=== PATIENT | female | born 1960 | race Caucasian/White ===

== ENCOUNTER 2017-11-08 10:44 | Inpatient (IN) | payer SELFPAY ==
[~2017-11-08] VITALS: Ht 152.4 cm; Wt 49.0 kg
[2017-11-08 11:08] LABS: GLUCOSE,POINT OF CARE 443 MG/DL (70-110)
[2017-11-08] MEDS ORDERED: SODIUM CHLORIDE 0.9% 1,000 ML IV ONE (11:30)
[2017-11-08] MEDS ORDERED: INSULIN REGULAR, HUMAN 100 UNITS/ML IVP ONE (11:30)
[2017-11-08] MEDS ORDERED: LORazepam 2 MG/ML VIAL IM ONE (11:45)
[2017-11-08] MEDS ORDERED: INSULIN REGULAR, HUMAN 100 UNITS/ML SQ ONE (11:45)
[2017-11-08] MEDS ORDERED: HALOPERIDOL LACTATE 5 MG/ML VIAL IM ONE (11:45)
[2017-11-08] MEDS ORDERED: QUEtiapine FUMARATE 100 MG TABLET PO ONE (12:45)
[2017-11-08 13:09] LABS: BASOPHILS % (AUTO) 0.3 % (0.0-2.0); EOSINOPHILS % (AUTO) 0.8 % (1.0-6.0); HEMATOCRIT 41.4 % (36-46); HEMOGLOBIN 13.9 g/dL (12.0-16.0); LYMPHOCYTES # (AUTO) 1.9 K/uL (1.0-4.8); LYMPHOCYTES % (AUTO) 17.3 % (22.0-44.0); MEAN CORPUSCULAR HEMOGLOBIN 28.6 pg (26.0-34.0); MEAN CORPUSCULAR HGB CONC 33.5 G/dL (31.0-37.0); MEAN CORPUSCULAR VOLUME 85 fL (80-100); MONOCYTES # (AUTO) 0.6 K/uL (0.1-1.0); MONOCYTES % (AUTO) 5.4 % (2.0-9.0); NEUTROPHILS # (AUTO) 8.4 K/uL (1.8-7.7); NEUTROPHILS % (AUTO) 76.2 % (40.0-70.0); PLATELET COUNT (AUTO) 350 K/uL (150-450); RED BLOOD CELL COUNT(AUTO) 4.85 MIL/uL (4.00-5.20); RED CELL DISTRIBUTION WIDTH 14.5 % (11.5-14.5)
[2017-11-08 13:21] LABS: ANION GAP 11 mmol/L (8-16); CALCIUM, TOTAL 10.1 mg/dL (8.8-10.5); CARBON DIOXIDE 28 mmol/L (22-29); CHLORIDE 97 mmol/L (98-107); CREATININE 0.79 mg/dL (0.60-1.30); GLOMERULAR FILTR. RATE CALC > 60 mL/min (>60); GLUCOSE,RANDOM 257 mg/dL (70-110); POTASSIUM 3.6 mmol/L (3.5-5.1); SODIUM SERUM 136 mmol/L (136-145); UREA NITROGEN, BLOOD 12 mg/dL (7-18)
[2017-11-08 13:26] LABS: ALANINE AMINOTRANSFERASE 15 U/L (12-78); ALBUMIN 3.6 g/dL (3.4-5.0); ALKALINE PHOSPHATASE 131 U/L (46-116); ASPARTATE AMINOTRANSFERASE 16 U/L (15-37); BILIRUBIN,TOTAL 0.5 mg/dL (0.1-1.0); TOTAL PROTEIN, SERUM 9.3 g/dL (6.4-8.2)
[2017-11-08 16:53] LABS: GLUCOSE,POINT OF CARE 300 MG/DL (70-110)
[2017-11-08] MEDS ORDERED: ALBUTEROL SULFATE HFA 90 MCG/PUFF 8 GM INHALER IH PRN (18:00)
[2017-11-08] MEDS ORDERED: IBUPROFEN 600 MG TABLET PO PRN (18:00)
[2017-11-08] MEDS: MICONAZOLE NITRATE 2% TP SCH (18:00)
[2017-11-08] MEDS ORDERED: ACETAMINOPHEN 325 MG TABLET PO PRN (18:00)
[2017-11-08] MEDS ORDERED: QUEtiapine FUMARATE 100 MG TABLET PO PRN (18:15)
[2017-11-08] MEDS ORDERED: DEXTROSE 50%-WATER 25 GM/50 ML SYRINGE IVP PRN (18:15)
[2017-11-08] MEDS ORDERED: LORazepam 2 MG TABLET PO PRN (18:15)
[2017-11-08] MEDS ORDERED: INSULIN LISPRO 100 UNITS/ML SQ PRN (18:15)
[2017-11-08] MEDS ORDERED: ZOLPIDEM TARTRATE 10 MG TABLET PO PRN (18:15)
[2017-11-08] MEDS: RisperiDONE 1 MG TABLET PO SCH (18:30)
[2017-11-08] MEDS: DIVALPROEX SODIUM 500 MG DR TABLET PO SCH (18:30)
[2017-11-08 20:49] VITALS: BP 109/55
[2017-11-09 05:44] LABS: GLUCOMETER DEV NAME(LOC) PVLAB139; GLUCOSE,POINT OF CARE 447 MG/DL (70-110)
[2017-11-09] MEDS ORDERED: INSULIN LISPRO 100 UNITS/ML SQ ONE ×3 (06:15→17:00)
[2017-11-09] MEDS ORDERED: BACITRACIN 28.4 GM OINTMENT TP PRN (06:30)
[2017-11-09] MEDS ORDERED: ONDANSETRON HCL 4 MG TABLET PO PRN (06:30)
[2017-11-09] MEDS ORDERED: MAGNESIUM HYDROXIDE SUSPENSION 30 ML UDCUP PO PRN (06:30)
[2017-11-09] MEDS ORDERED: LOPERAMIDE HCL 2 MG CAPSULE PO PRN (06:30)
[2017-11-09] MEDS ORDERED: CloNIDine HCL 0.1 MG TABLET PO PRN (06:30)
[2017-11-09] MEDS ORDERED: MAG HYDROX/AL HYDROX/SIMETH ES 30 ML SUSPENSION UDCUP PO PRN (06:30)
[2017-11-09] MEDS ORDERED: PETROLATUM,WHITE 71 GM JELLY TP PRN (06:30)
[2017-11-09] MEDS ORDERED: BENZOCAINE/MENTHOL LOZENGE MM PRN (06:30)
[2017-11-09] MEDS: DOCUSATE SODIUM 100 MG CAPSULE PO SCH (09:00)
[2017-11-09] MEDS: RisperiDONE 1 MG TABLET PO SCH ×2 (09:00→17:00)
[2017-11-09] MEDS: OMEPRAZOLE 20 MG CAPSULE PO SCH (09:00)
[2017-11-09] MEDS: DIVALPROEX SODIUM 500 MG DR TABLET PO SCH ×2 (09:00→17:00)
[2017-11-09] MEDS: MICONAZOLE NITRATE 2% TP SCH ×2 (09:00→18:07)
[2017-11-09] MEDS ORDERED: DEXTROSE 50%-WATER 25 GM/50 ML SYRINGE IVP PRN (11:45)
[2017-11-09] MEDS: BACITRACIN 28.4 GM OINTMENT TP SCH (17:00)
[2017-11-09 17:03] LABS: GLUCOMETER DEV NAME(LOC) PVLAB139; GLUCOSE,POINT OF CARE 438 MG/DL (70-110)
[2017-11-09] MEDS: INSULIN LISPRO 100 UNITS/ML SQ PRN (20:17)
[2017-11-09 20:19] LABS: GLUCOMETER DEV NAME(LOC) PVLAB139; GLUCOSE,POINT OF CARE 164 MG/DL (70-110)
[2017-11-10 05:59] LABS: GLUCOMETER DEV NAME(LOC) PVLAB139; GLUCOSE,POINT OF CARE 357 MG/DL (70-110)
[2017-11-10] MEDS: INSULIN LISPRO 100 UNITS/ML SQ PRN ×4 (07:21→20:50)
[2017-11-10] MEDS: MULTIVITAMINS WITH MINERALS, THERAPEUTIC TABLET PO SCH (08:54)
[2017-11-10] MEDS: OMEPRAZOLE 20 MG CAPSULE PO SCH (08:54)
[2017-11-10] MEDS: MICONAZOLE NITRATE 2% TP SCH ×2 (08:54→16:41)
[2017-11-10] MEDS: DOCUSATE SODIUM 100 MG CAPSULE PO SCH (08:56)
[2017-11-10] MEDS: RisperiDONE 1 MG TABLET PO SCH ×2 (08:56→16:41)
[2017-11-10] MEDS: DIVALPROEX SODIUM 500 MG DR TABLET PO SCH ×2 (08:56→16:39)
[2017-11-10] MEDS: BACITRACIN 28.4 GM OINTMENT TP SCH ×2 (11:05→16:41)
[2017-11-10 11:39] LABS: GLUCOMETER DEV NAME(LOC) PVLAB139; GLUCOSE,POINT OF CARE 463 MG/DL (70-110)
[2017-11-10 16:34] LABS: GLUCOMETER DEV NAME(LOC) PVLAB139; GLUCOSE,POINT OF CARE 282 MG/DL (70-110)
[2017-11-10] MEDS: MetFORMIN HCL 500 MG TABLET PO SCH (16:42)
[2017-11-10 17:38] VITALS: BP 120/66
[2017-11-10 20:54] LABS: GLUCOMETER DEV NAME(LOC) 3EC; GLUCOSE,POINT OF CARE 298 MG/DL (70-110)
[2017-11-10] MEDS ORDERED: INSULIN GLARGINE,HUM.REC.ANLOG 100 UNITS/ML SQ SCH (21:00)
[2017-11-11 06:40] LABS: GLUCOMETER DEV NAME(LOC) 3EC; GLUCOSE,POINT OF CARE 318 MG/DL (70-110)
[2017-11-11] MEDS: MetFORMIN HCL 500 MG TABLET PO SCH ×2 (06:48→06:56)
[2017-11-11] MEDS: INSULIN LISPRO 100 UNITS/ML SQ PRN ×2 (06:54→11:47)
[2017-11-11] MEDS: DOCUSATE SODIUM 100 MG CAPSULE PO SCH (09:00)
[2017-11-11] MEDS: OMEPRAZOLE 20 MG CAPSULE PO SCH (09:00)
[2017-11-11] MEDS: DIVALPROEX SODIUM 500 MG DR TABLET PO SCH (09:00)
[2017-11-11] MEDS: BACITRACIN 28.4 GM OINTMENT TP SCH (09:00)
[2017-11-11] MEDS: RisperiDONE 1 MG TABLET PO SCH (09:00)
[2017-11-11] MEDS: MICONAZOLE NITRATE 2% TP SCH (09:00)
[2017-11-11] MEDS: MULTIVITAMINS WITH MINERALS, THERAPEUTIC TABLET PO SCH (09:00)
[2017-11-11] MEDS ORDERED: RISP1 PO (09:15)
[2017-11-11] MEDS ORDERED: BACI30OI10 TP (09:21)
[2017-11-11] MEDS ORDERED: DIVA-78 PO (09:22)
[2017-11-11 09:23] VITALS: BP 118/64
[2017-11-11] MEDS ORDERED: DSS100 PO (09:28)
[2017-11-11] MEDS ORDERED: INSLAN SQ (09:30)
[2017-11-11] MEDS ORDERED: [UNRECOGNIZED DRUG - CODE] TP (09:35)
[2017-11-11] MEDS ORDERED: MULT-1239 PO (09:38)
[2017-11-11] MEDS ORDERED: OMEP20 PO (09:39)
[2017-11-11] MEDS ORDERED: METF500T6 PO (09:39)
[2017-11-11 11:43] LABS: GLUCOMETER DEV NAME(LOC) 3EC; GLUCOSE,POINT OF CARE 207 MG/DL (70-110)
== END 2017-11-11 12:30 | disposition home or self-care (01) | DRG 885 ==
LOC: EMS 10:45 → 3EI 16:09
PROVIDERS: ADMIT Psychiatry & Neurology Psychiatry; ATTEND Psychiatry & Neurology Psychiatry
DX: F25.9 Schizoaffective disorder, unspecified (principal); F41.9 Anxiety disorder, unspecified; G47.00 Insomnia, unspecified; J45.909 Unspecified asthma, uncomplicated; K59.00 Constipation, unspecified; F17.200 Nicotine dependence, unspecified, uncomplicated; F15.90 Other stimulant use, unspecified, uncomplicated; E11.65 Type 2 diabetes mellitus with hyperglycemia; D72.829 Elevated white blood cell count, unspecified; Z59.0 Homelessness; Z91.14 Patient's other noncompliance with medication regimen; Z91.19 Patient's noncompliance with other medical treatment and regimen; Z56.0 Unemployment, unspecified; Z88.0 Allergy status to penicillin; Z91.018 Allergy to other foods; Z79.899 Other long term (current) drug therapy; Z79.4 Long term (current) use of insulin
CPT/HCPCS: 83036; 96372; 99285; G0480; J1630; J1815; J2060